=== PATIENT | male | born 1950 | race American Indian/Alaskan Native ===

== ENCOUNTER 2017-09-15 09:07 | Emergency (ER) | payer MEDICARE, OTHER ==
[2017-09-15 09:42] VITALS: O2SAT 100
[2017-09-15 10:44] LABS: URINE BACTERIA MANY (<OCC); URINE BILIRUBIN NEGATIVE (NEGATIVE); URINE BLOOD 2+ (NEGATIVE); URINE CLARITY Hazy (Clear); URINE COLOR Amber (YELLOW); URINE GLUCOSE (UA) NORMAL (Normal); URINE LEUKOCYTE ESTERASE 2+ Leu/uL (Negative); URINE PROTEIN 2+ mg/dL (NEGATIVE)
[2017-09-15 10:45] LABS: BASO % 0.3 % (0.0-2.0); EOS % 0.2 % (0.0-4.0); HEMOGLOBIN 13.4 g/dL (12.0-18.0); LYMPH # 0.8 K/uL (1.0-4.3); LYMPH % 6.8 % (20.0-40.0); MEAN CELL VOLUME 83.2 fL (80.0-94.0); MEAN CORPUSCULAR HEMOGLOBIN 27.4 pg (27.0-31.0); MEAN CORPUSCULAR HGB CONC 32.9 g/dL (33.0-37.0); MEAN PLATELET VOLUME 11.3 fL (7.2-11.7); MONO # 0.8 K/uL (0.0-0.8); MONO % 6.3 % (0.0-10.0); NEUT # 10.3 K/uL (1.8-7.0); NEUT % 86.4 % (50.0-75.0); PLATELET COUNT 201 K/uL (130-400); RBC 4.88 Mil/uL (4.40-5.90); WHITE BLOOD COUNT 11.9 K/uL (4.8-10.8)
[2017-09-15 10:50] LABS: ALB/GLOB RATIO 1.3 (1.0-2.1); ALBUMIN 3.8 g/dL (3.5-5.0); ALT/SGPT 31 U/L (21-72); AST/SGOT 10 U/L (17-59); BLOOD UREA NITROGEN 11 mg/dL (9-20); CALCIUM 8.9 mg/dl (8.6-10.4); GFR AFRICAN-AMERICAN > 60; GFR NON-AFRICAN AMERICAN > 60
--- NOTE | 2017-09-15 11:05 | C.PDOC ---
History Of Present Illness 67yo male, history of CVA and resultant right hemiparesis, sent to ER from long term for evaluation of an indwelling chester catheter. Patient was evaluated by Dr. Marcelle Maria, his urologist, prior to arrival to the ER. Otherwise, no fever, chills, or vomiting reported. Patient is aphasic so history obtained from snf records. Time Seen by Provider: 09/15/17 09:30 Chief Complaint (Nursing): Male Genitourinary History Per: Other (long term records) Onset/Duration Of Symptoms: Days Current Symptoms Are (Timing): Still Present Associated Symptoms: denies: Fever, Chills, Nausea, Vomiting Additional History Per: Long Term Past Medical History Reviewed: Historical Data, Nursing Documentation, Vital Signs Vital Signs: Last Vital Signs Temp 98.9 F 09/15/17 09:14 Pulse 75 09/15/17 09:14 Resp 18 09/15/17 09:14 BP 170/70 H 09/15/17 09:14 Pulse Ox 100 09/15/17 11:45 - Medical History PMH: Anemia, Benign Prostatic Hyperplasia, CVA, HTN, Hyperlipidemia, Seizures ( Epilepsy) Surgical History: Back Surgery (spinal) Family History: States: No Known Family Hx - Social History Hx Alcohol Use: No (former) Hx Substance Use: No - Immunization History Hx Tetanus Toxoid Vaccination: No Hx Influenza Vaccination: No Hx Pneumococcal Vaccination: No Review Of Systems Except As Marked, All Systems Reviewed And Found Negative. Constitutional: Negative for: Fever, Chills Gastrointestinal: Negative for: Vomiting, Diarrhea Genitourinary: Positive for: Other (indwelling chester catheter). Negative for: Dysuria, Frequency, Hematuria Physical Exam - Physical Exam Appears: Non-toxic Skin: Normal Color, Warm Head: Atraumatic, Normacephalic Eye(s): bilateral: Normal Inspection Neck: Normal ROM, Supple Chest: Symmetrical Cardiovascular: Rhythm Regular Respiratory: Normal Breath Sounds Gastrointestinal/Abdominal: Soft, No Tenderness, No Guarding, No Rebound Back: Normal Inspection Male Genital: Other (indwelling chester catheter) Neurological/Psych: Oriented x3, Other (right hemiparesis) ED Course And Treatment - Laboratory Results Result Diagrams: 09/15/17 10:31 09/15/17 10:31 O2 Sat by Pulse Oximetry: 100 (RA) Pulse Ox Interpretation: Normal Medical Decision Making Medical Decision Making: Assessment: Urinary retention Plan: -- Labs -- UA -- Urine culture Patient seen and evaluated by Dr. Maria in ER. Per Dr. Maria, patient can be discharged back to long term if labs are normal. 1100 Patient currently pending labs results 1120 Patient with elevated Carbamazepine levels; hold for today and repeat levels. Disposition Discussed With Dr.: Marcelle Maria Doctor Will See Patient In The: ED Counseled Patient/Family Regarding: Studies Performed, Diagnosis, Need For Followup - Disposition Referrals: Marcelle Maria MD [Staff Provider] - Disposition: TRANSF TO SNF Disposition Time: 11:51 Condition: STABLE Additional Instructions: follow Dr. 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 - Scribe Statement The provider has reviewed the documentation as recorded by the Miladys Ricketts Provider Attestation: All medical record entries made by the Miladys were at my direction and personally dictated by me. I have reviewed the chart and agree that the record accurately reflects my personal performance of the history, physical exam, medical decision making, and the department course for this patient. I have also personally directed, reviewed, and agree with the discharge instructions and disposition.
[2017-09-15 11:09] LABS: BANDS 2 % (0-2); LYMPHOCYTE 5 % (20-40); MONOCYTE 6 % (0-10); NEUTROPHIL 87 % (50-75); PLATELET ESTIMATE NORMAL (NORMAL); TOTAL CELLS COUNTED 100
[2017-09-15 11:10] LABS: ANISOCYTOSIS SLIGHT; LARGE PLATELETS PRESENT
[2017-09-15 12:16] VITALS: BP 168/70; PULSE 71; RESP 20; TEMP 98.8
--- NOTE | 2017-09-15 23:04 | C.PDOC ---
History Of Present Illness cc: Hx of retention x 2 weeks Hx of TBI and paraplegia, p fall down steps Time Seen by Provider: 09/15/17 09:30 Chief Complaint (Nursing): Male Genitourinary Past Medical History Vital Signs: Last Vital Signs Temp 98.8 F 09/15/17 12:15 Pulse 71 09/15/17 12:15 Resp 20 09/15/17 12:15 BP 168/70 H 09/15/17 12:15 Pulse Ox 100 09/15/17 12:15 - Medical History PMH: Anemia, Benign Prostatic Hyperplasia, CVA, HTN, Hyperlipidemia, Seizures ( Epilepsy) Surgical History: Back Surgery (spinal) Family History: States: No Known Family Hx - Social History Hx Alcohol Use: No (former) Hx Substance Use: No - Immunization History Hx Tetanus Toxoid Vaccination: No Hx Influenza Vaccination: No Hx Pneumococcal Vaccination: No Physical Exam - Physical Exam Appears: Well, Non-toxic Skin: Normal Color Gastrointestinal/Abdominal: Normal Exam, Soft, No Tenderness, No Organomegaly, No Mass, No Distention Rectal: Normal Exam, Rectal Tone, No Melena (prostate: smooth, firm, symmetrical , approx 30-40cc in size), No Mass, No Tenderness Back: No CVA Tenderness Male Genital: Normal Inspection, No Testicular Tenderness, No Scrotal Swelling ED Course And Treatment - Laboratory Results Result Diagrams: 09/15/17 10:31 09/15/17 10:31 O2 Sat by Pulse Oximetry: 100 - Physician Consult Information Outcome Of Conversation: full note tbd. To return to [facility]. Discussed w pt's and with ER staff. Anguser w/u and rx t/f Disposition - Disposition Referrals: Marcelle Maria MD [Staff Provider] - Disposition: TRANSF TO SNF Disposition Time: 01:00 Condition: STABLE Additional Instructions: follow Dr. Maria for follow up appointment Tegretol level was elevated at 18.8 Hold tegretol for one day and repeat level call to make an appointment take medications as needed return to ER if symptoms worsens or progress Instructions: Urinary Retention (DC) Forms: General Discharge Instructions, [facility] ([place] Zealander) - Clinical Impression Clinical Impression: Urinary retention
== END 2017-09-15 12:16 ==
LOC: C.ER 09:07
DX: R33.9 Retention of urine, unspecified (principal); E78.5 Hyperlipidemia, unspecified; G40.909 Epilepsy, unspecified, not intractable, without status epilepticus; I10 Essential (primary) hypertension